=== PATIENT | male | born 1945 | race Caucasian/White ===

== ENCOUNTER 2018-03-04 15:06 | Outpatient (RCR) | payer MEDICARE | END 2018-03-22 | disposition home or self-care (01) | LOC: M ST 15:06 | DX: Z51.89 Encounter for other specified aftercare (principal); I60.9 Nontraumatic subarachnoid hemorrhage, unspecified; F07.89 Other personality and behavioral disorders due to known physiological condition; I69.928 Other speech and language deficits following unspecified cerebrovascular disease | CPT/HCPCS: 96125 ==